=== PATIENT | male | born 1995 | race Caucasian/White ===

== ENCOUNTER 2023-04-12 13:03 | Emergency (ER) | payer OTHER, SELFPAY ==
--- NOTE | ~2023-04-12 | XR_ITS ---
EXAMINATION: XR chest 2V DATE: 04/12/2023 14:03 INDICATION: Chest pain. Dizziness. TECHNIQUE: Frontal and lateral views of the chest were obtained. COMPARISON: None. FINDINGS: The chest demonstrates clear lungs without pneumonia, pleural effusion, or pneumothorax. Th e heart size is normal. IMPRESSION: 1. No acute cardiopulmonary disease. Reviewed, dictated and finalized at location E.
--- NOTE | 2023-04-12 13:04 | ECG_ITS ---
Measurements Intervals [place] Rate: 93 P: 49 MS: 141 QRS: -6 QRSD: 102 T: 26 QT: 344 QTc: 429 Interpretive Statements SINUS RHYTHM INCOMPLETE RIGHT BUNDLE BRANCH BLOCK BORDERLINE ECG NO PREVIOUS ECG AVAILABLE FOR COMPARISON Electronically Signed On 04-12-2023 15:19:52 CDT by Jesus Tiwari D.O.
[2023-04-12 13:16] VITALS: BP 158/81; PULSE 79; RESP 18; TEMP 36.2; O2SAT 100
[2023-04-12 13:22] LABS: Basophils Percent Auto 0.2 % (0.2-1.2); Eosinophils Absolute Auto 0.2 K/mm3 (0-0.3); Eosinophils Percent Auto 2.1 % (0-4.4); Hematocrit 45.5 % (42.0-52.0); Hemoglobin 15.4 g/dL (14.0-18.0); Immature Granulocyte Absolute 0.02 K/mm3 (0.00-0.031); Immature Granulocyte Percent A 0.2 % (0-0.5); Lymphocytes Absolute Auto 2.28 K/mm3 (0.9-3.2); Lymphocytes Percent Auto 28.3 % (18.3-44.2); Mean Corpuscular HGB Conc 33.8 g/dl (32-36); Mean Corpuscular Hemoglobin 28.3 pg (26-34); Mean Corpuscular Volume 83.5 fl (80-100); Mean Platelet Volume 10.5 fl (7.4-10.4); Monocytes Absolute Auto 0.4 K/mm3 (0.1-0.6); Monocytes Percent Auto 5.5 % (2.6-8.5); Neutrophils Absolute Auto 5.1 K/mm3 (1.3-6.7); Neutrophils Percent Auto 63.7 % (45.5-73.1); Platelet Count Result 305 k/mm3 (150-375); Red Blood Count 5.45 M/mm3 (4.6-6.20); Red Cell Distribution Width 12.9 % (11.5-14.5); White Blood Count 8.1 K/mm3 (4.5-10.0)
[2023-04-12 13:39] LABS: Alanine Aminotransferase 36 U/L (6-50); Albumin Level 4.5 g/dL (3.5-5.1); Alkaline Phosphatase 94 U/L (38-126); Anion Gap 2 mmol/L (8-16); Aspartate Amino Transferase 32 U/L (17-59); Bilirubin,Total 0.5 mg/dL (0.2-1.3); Blood Urea Nitrogen 14 mg/dL (9-20); Calcium 9.5 mg/dL (8.4-10.2); Carbon Dioxide 30 mmol/L (22-30); Chloride 103 mmol/L (98-107); Estimated CRCL calculation 157 ml/min; Estimated Glomerular Filt Rate > 60; Glucose 111 mg/dL (65-110); INR 0.9; Lipase 76 U/L (23-300); Prothrombin Time 12.8 Seconds (11.1-14.7); Sodium 135 mmol/L (137-145)
[2023-04-12 13:40] LABS: Partial Thromboplastin Time 28.4 SECONDS (22.3-36.8)
[2023-04-12 13:51] LABS: Troponin I < 0.012 ng/mL (0.000-0.034)
[2023-04-12 14:34] VITALS: PULSE 83
[2023-04-12] MEDS: ASPIRIN 81 MG CHEWABLE TABLET 324 MG PO (14:36)
[2023-04-12 14:38] VITALS: BP 151/90; PULSE 96; RESP 15; O2SAT 100
[2023-04-12 15:58] VITALS: BP 141/85; PULSE 100; RESP 20; O2SAT 100
--- NOTE | 2023-04-12 16:38 | ED.CHESTPAIN ---
HPI - Chest Pain General Chief Complaint: Chest Pain Stated Complaint: chest pain Time Seen by Provider: 04/12/23 15:51 Source: patient Mode of arrival: ambulatory Limitations: no limitations History of Present Illness HPI narrative: This is a 28-year-old male that presents to the emergency department for an episode of chest pain this morning. Reports he had just arrived at the gym. He started to notice some dull left-sided chest pain. Then he started to feel lightheaded. He went home and rested and felt better. He has noticed the pain intermittently with certain movements since. Denies shortness of breath. Related Data Allergies Allergy/AdvReac Type Severity Reaction Status Date / Time No Known Allergies Allergy Mild Verified 04/12/23 14:35 Review of Systems Review of Systems: CONSTITUTIONAL: Denies fever CARDIOVASCULAR: Reports chest pain. Denies palpitations, or edema. RESPIRATORY: Denies cough or dyspnea. All systems reviewed & are unremarkable except as noted in HPI and below PMFSH Past Medical History Medical History (Updated 04/12/23 @ 16:47 by Nohemi Whitfield PA-C) Alcohol abuse stopped drinking November,. 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 alcohol use, discontinued November, Dry skin Encounter for wellness examination in adult Fatigue Grieving Obesity (BMI 30-39.9) Seasonal allergic rhinitis Surgical History Surgical History (Updated 11/22/19 @ 14:21 by Oralia Green MA) H/O hernia repair (~1997) Family History Family History (Updated 11/22/19 @ 14:22 by Oralia Green MA) Grandparent Lung cancer Social History Social History (Updated 04/12/23 @ 16:40 by Nohemi Whitfield PA-C) Smoking status: Never smoker Alcohol intake: former Drinks per week: 30 Alcohol use details: Beer Substance use: former Current Housing: Decline to Answer Concerned About Future Housing: Decline to Answer Difficulty Paying Gas/Electric Bills: Decline to Answer Difficulty Paying for Meds: Decline to Answer Currently Unemployed: Decline to Answer Education: Decline to Answer Difficulty w/ Childcare or Family Care: Decline to Answer Exam Narrative: GENERAL: Well-appearing, well-nourished, and in no acute distress. HEAD: Normocephalic, atraumatic. EYES: EOMI. NECK: Supple. No adenopathy or masses. No JVD CHEST: Clear to auscultation. No respiratory distress. No wheezes rales or rhonchi HEART: Regular rate and rhythm. No murmur heard. Normal peripheral pulses. EXTREMITIES: Normal range of motion. No edema. SKIN: Warm, dry, no rash. NEURO: No focal deficits. Alert and oriented x3. PSYCH: Normal mood and affect Course Course Emergency Course: Patient and family updated on work-up and agree with plan of care Vital Signs Vital signs: Vital Signs Temperature 97.2 F L 04/12/23 13:16 Pulse Rate 79 04/12/23 13:16 Respiratory Rate 18 04/12/23 13:16 Blood Pressure 158/81 H 04/12/23 13:16 Pulse Oximetry 100 04/12/23 13:16 Oxygen Delivery Room Air 04/12/23 13:16 Temperature 97.2 F L 04/12/23 13:16 Pulse Rate 100 04/12/23 15:58 Respiratory Rate 20 04/12/23 15:58 Blood Pressure 141/85 H 04/12/23 15:58 Pulse Oximetry 100 04/12/23 15:58 Oxygen Delivery Room Air 04/12/23 13:16 MDM - Chest Pain MDM Narrative Medical decision making narrative: Patient presents to the emergency department for an episode of chest pain today. His vitals are stable. CBC and metabolic panel without concerning findings. EKG without acute findings and baseline and 3-hour troponin are negative. Chest x-ray without acute cardiopulmonary abnormality. PERC criteria negative. His heart score is a 1. Patient and family were updated on work-up. Instructed to have follow-up with his primary provider. He does report pain is worse with movement so could
[2023-04-12 16:40] LABS: Troponin I < 0.012 ng/mL (0.000-0.034)
[2023-04-12 17:01] VITALS: BP 129/80; PULSE 83; RESP 21; O2SAT 100
== END 2023-04-12 17:02 | disposition home or self-care (01) ==
PROVIDERS: Preventive Medicine Aerospace Medicine; Emergency Provider Physician Assistant; PCP Family Medicine
DX: R07.9 Chest pain, unspecified (principal); F32.A Depression, unspecified
CPT/HCPCS: 36415; 71046; 80053; 83690; 84484; 85025; 85610; 85730; 93005; 99284; A9270